=== PATIENT | male | born 1935 | race Hispanic/Latino ===

== ENCOUNTER 2023-12-22 05:43 | Day surgery (SDC) | payer MEDICARE, OTHER ==
[2023-12-18 14:55] LABS: BASOPHILS # (AUTO) 0.06 K/uL (0.00-0.20); BASOPHILS % (AUTO) 0.8 % (0.0-5.0); EOSINOPHILS # (AUTO) 0.01 K/uL (0.00-0.70); EOSINOPHILS % (AUTO) 0.1 % (0.0-8.0); HEMATOCRIT 40.7 % (42-54); IMMATURE GRANULOCYTE ABSOLUTE 0.03 K/uL (0-1); LYMPHOCYTES # (AUTO) 2.8 K/uL (1.0-4.8); LYMPHOCYTES % (AUTO) 35.5 % (21.0-51.0); MEAN CORPUSCULAR HGB CONC 32.9 g/dL (32.0-36.0); MEAN CORPUSCULAR VOLUME 91.3 fL (79-99); MONOCYTES # (AUTO) 1.1 K/uL (0.1-1.0); MONOCYTES % (AUTO) 13.3 % (3.0-13.0); NEUTROPHILS % (AUTO) 49.9 % (40.0-77.0); PLATELET COUNT (AUTO) 247 K/uL (130-400); RED BLOOD CELL COUNT(AUTO) 4.46 MIL/uL (4.50-6.20); RED CELL DISTRIBUTION WIDTH 14.8 % (11.0-15.5); WHITE BLOOD COUNT (AUTO) 7.9 K/uL (4.8-10.8)
[2023-12-18 15:06] LABS: INR <= 0.93 (0.85-1.15)
[2023-12-18 15:07] LABS: PARTIAL THROMBOPLASTIN TIME 27.9 SEC (26.3-35.5)
[2023-12-18 15:12] LABS: CREATININE 1.1 mg/dL (0.5-1.3); POTASSIUM 4.1 mmol/L (3.5-5.1)
[2023-12-18 15:27] VITALS: BP 156/78; PULSE 90; RESP 16
[~2023-12-22] VITALS: Ht 167.6 cm; Wt 67.7 kg
[~2023-12-22 05:43] MED LIST: CHLO25TA3 PO; CLOP-31 PO; PANT40TA54 PO; POTA10CA85 PO; PRAV20TA4 PO
[2023-12-22 06:30] VITALS: BP 152/82; PULSE 70; RESP 16
[2023-12-22] MEDS ORDERED: 0.9%NACL 1000ML 1,000 ML IV ONE (06:44)
[2023-12-22] MEDS ORDERED: LIDOCAINE HCL 1% MDV 50ML VIAL ONE (07:30)
[2023-12-22 08:25] VITALS: BP 134/61; PULSE 59; RESP 16
[2023-12-22 08:45] VITALS: BP 131/58; PULSE 59; RESP 16
== END 2023-12-22 08:45 | disposition home or self-care (01) ==
LOC: DAH 05:43
PROVIDERS: ATTEND Internal Medicine Cardiovascular Disease
DX: Z45.09 Encounter for adjustment and management of other cardiac device (principal); I10 Essential (primary) hypertension; E78.5 Hyperlipidemia, unspecified; Z86.73 Personal history of transient ischemic attack (TIA), and cerebral infarction without residual deficits; Z79.01 Long term (current) use of anticoagulants; Z79.899 Other long term (current) drug therapy; Z82.3 Family history of stroke; Z88.8 Allergy status to other drugs, medicaments and biological substances
CPT/HCPCS: 80048; 85025; 85610; 85730; 36415; 93005; 33286; A4649; J7030; J3490; A4215; A6251; A4222; A4221; A4663; A4216; A6258; A4606; A4223 ×3